=== PATIENT | female | born 2000 | race Native Hawaiian/Other Pacific Islander ===

== ENCOUNTER 2021-01-28 22:05 | Emergency (ER) | payer OTHER ==
[~2021-01-28] VITALS: Ht 157.5 cm; Wt 65.8 kg
[2021-01-28 23:16] VITALS: BP 106/66; TEMP 98.9
== END 2021-01-28 23:16 | disposition home or self-care (01) ==
LOC: ED 22:05
DX: L02.413 Cutaneous abscess of right upper limb (principal)
CPT/HCPCS: 96372; 99283; J0696